=== PATIENT | female | born 1950 | race Caucasian/White ===

== ENCOUNTER 2016-12-04 06:37 | Inpatient (IN) | payer OTHER ==
[~2016-12-04] VITALS: Ht 154.9 cm; Wt 59.3 kg
[2016-12-04] VITALS (9 sets, daily range): BP systolic 101–136; BP diastolic 62–70
[~2016-12-04 06:37] MED LIST: AMLO5TAB4 PO; ASPI325T4 PO; ATOR20TA PO; CAPT100T2 PO; CIPR500T3 PO; DABI150C PO; GUAI-103 PO; HYDR-3240 PO; LISI-167 PO; LISI-170 PO; LISI40TA PO; METO25TA35 PO; METO50TA82 PO; NICO1PAT4 TD; NICO1PAT5 TD; SIMV5TAB5 PO; TRAM50TA2 PO; WARF2.5T PO; WARF5TAB PO
[2016-12-04] MEDS ORDERED: ERGO500017 PO (07:51)
[2016-12-04] MEDS ORDERED: AMLO10TA2 PO (07:51)
[2016-12-04] MEDS ORDERED: SODIUM CHLORIDE 0.9% 1,000ML IVBOLUS ONE (08:00)
[2016-12-04 08:30] LABS: ASPARTATE AMINO TRANSFERASE 16 U/L (15-37); BLOOD UREA NITROGEN 26 mg/dL (7-18)
[2016-12-04] MEDS ORDERED: OMNIPAQUE 350 MG/ML, 100ML BOTTLE ONE (09:15)
[2016-12-04 10:21] LABS: PATH.CAST-FLAG NOT PRESENT; SPERM-FLAG NOT PRESENT; SRC-FLAG NOT PRESENT; XTAL-FLAG NOT PRESENT; YLC-FLAG NOT PRESENT
[2016-12-04] MEDS ORDERED: HYDROmorphone 1 MG/ML, 1ML IVPush PRN (10:30)
[2016-12-04] MEDS ORDERED: ONDANSETRON 2MG/ML, 2ML IVPush ONE (10:30)
[2016-12-04] MEDS ORDERED: HYDROmorphone 1 MG/ML, 1ML ONE (10:39)
[2016-12-04] MEDS ORDERED: METRONIDAZOLE PMX 500MG/100ML 100 ML ONE (10:58)
[2016-12-04] MEDS ORDERED: METRONIDAZOLE PMX 500MG/100ML 100 ML IV ONE (11:00)
[2016-12-04] MEDS ORDERED: SODIUM CHLORIDE 0.9% 1,000 ML IV SCH (13:59)
[2016-12-04] MEDS ORDERED: LABETALOL 5MG/ML, 20ML IVPush PRN (14:00)
[2016-12-04] MEDS ORDERED: ENALAPRILAT 1.25 MG/ML, 2ML IVPush PRN (14:00)
[2016-12-04] MEDS ORDERED: ONDANSETRON 2MG/ML, 2ML IVPush PRN (14:00)
[2016-12-04] MEDS ORDERED: NICOTINE 14MG/24 HR PATCH.TD24 TD ONE (14:30)
[2016-12-04] MEDS: CEFTRIAXONE PMX 1GM/50ML 50 ML IV SCH (15:51)
[2016-12-04] MEDS: HYDROmorphone 2 MG/ML, 1ML IVPush PRN (17:24)
[2016-12-04] MEDS: METRONIDAZOLE PMX 500MG/100ML 100 ML IV SCH (20:11)
[2016-12-05] VITALS (11 sets, daily range): BP systolic 128–175; BP diastolic 67–85
[2016-12-05] MEDS: METOPROLOL TARTRATE 50 MG TABLET PO SCH ×2 (02:02→08:55)
[2016-12-05] MEDS: METRONIDAZOLE PMX 500MG/100ML 100 ML IV SCH ×4 (02:02→20:07)
[2016-12-05 07:07] LABS: ASPARTATE AMINO TRANSFERASE 13 U/L (15-37); BLOOD UREA NITROGEN 15 mg/dL (7-18)
[2016-12-05] MEDS: AMLODIPINE 5 MG TABLET PO SCH (08:56)
[2016-12-05] MEDS ORDERED: LISINOPRIL 20 MG TABLET PO SCH (09:00)
[2016-12-05] MEDS ORDERED: POTASSIUM CHLORIDE 40 MEQ in SODIUM CHLORIDE 0.9% 500 ML IV ONE (10:00)
[2016-12-05] MEDS ORDERED: hydrALAzine 20 MG/ML, 1ML IV PRN (10:30)
[2016-12-05] MEDS: NS + 40MEQ KCL 1,000 ML IV SCH ×2 (11:04→22:21)
[2016-12-05] MEDS: CEFTRIAXONE PMX 1GM/50ML 50 ML IV SCH (14:22)
[2016-12-05] MEDS: ENALAPRILAT 1.25 MG/ML, 2ML IV SCH ×2 (14:22→20:07)
[2016-12-05] MEDS: HYDROmorphone 2 MG/ML, 1ML IVPush PRN (18:01)
[2016-12-06 00:40] VITALS: BP 132/67
[2016-12-06] MEDS: METRONIDAZOLE PMX 500MG/100ML 100 ML IV SCH ×4 (02:54→21:02)
[2016-12-06] MEDS: ENALAPRILAT 1.25 MG/ML, 2ML IV SCH ×4 (02:56→21:02)
[2016-12-06] MEDS: NS + 40MEQ KCL 1,000 ML IV SCH ×2 (05:38→11:40)
[2016-12-06 07:40] LABS: BLOOD UREA NITROGEN 11 mg/dL (7-18)
[2016-12-06 07:55] VITALS: BP 126/74
[2016-12-06] MEDS: AMLODIPINE 5 MG TABLET PO SCH (09:00)
[2016-12-06 13:32] VITALS: BP 129/74
[2016-12-06] MEDS: CEFTRIAXONE PMX 1GM/50ML 50 ML IV SCH (16:50)
[2016-12-06 20:00] VITALS: BP 167/79
[2016-12-06] MEDS: HYDROmorphone 2 MG/ML, 1ML IVPush PRN (21:03)
[2016-12-07 02:25] VITALS: BP 122/68
[2016-12-07] MEDS: METRONIDAZOLE PMX 500MG/100ML 100 ML IV SCH ×3 (03:10→14:26)
[2016-12-07] MEDS: ENALAPRILAT 1.25 MG/ML, 2ML IV SCH ×2 (03:10→08:40)
[2016-12-07 06:05] LABS: BLOOD UREA NITROGEN 13 mg/dL (7-18)
[2016-12-07 08:07] VITALS: BP 110/59
[2016-12-07] MEDS: AMLODIPINE 5 MG TABLET PO SCH (08:40)
[2016-12-07] MEDS: HYDROmorphone 2 MG/ML, 1ML IVPush PRN (08:42)
[2016-12-07] MEDS: CEFTRIAXONE PMX 1GM/50ML 50 ML IV SCH (13:49)
== END 2016-12-07 16:10 | disposition home or self-care (01) | DRG 291 ==
LOC: ED 10:12 → EDIP 10:30 → SUATTDRO 10:43 → 4WST 12:10 → DCLOUNGE 12-07 15:47
PROVIDERS: ADMIT Internal Medicine; ATTEND Internal Medicine
PROC: 30233L1 Transfusion of Nonautologous Fresh Plasma into Peripheral Vein, Percutaneous Approach (ICD-10-PCS; principal; 2016-12-04)
PROC: 30233K1 Transfusion of Nonautologous Frozen Plasma into Peripheral Vein, Percutaneous Approach (ICD-10-PCS; 2016-12-04)
DX: I11.0 Hypertensive heart disease with heart failure (principal); K55.039 Acute (reversible) ischemia of large intestine, extent unspecified; D68.69 Other thrombophilia; K50.90 Crohn's disease, unspecified, without complications; I50.32 Chronic diastolic (congestive) heart failure; D50.0 Iron deficiency anemia secondary to blood loss (chronic); E78.5 Hyperlipidemia, unspecified; E87.6 Hypokalemia; F17.210 Nicotine dependence, cigarettes, uncomplicated; I07.1 Rheumatic tricuspid insufficiency; I25.10 Atherosclerotic heart disease of native coronary artery without angina pectoris; I25.2 Old myocardial infarction; I48.2 Chronic atrial fibrillation; I73.9 Peripheral vascular disease, unspecified; M19.90 Unspecified osteoarthritis, unspecified site; K02.9 Dental caries, unspecified; T45.515A Adverse effect of anticoagulants, initial encounter; Z86.73 Personal history of transient ischemic attack (TIA), and cerebral infarction without residual deficits; Z79.01 Long term (current) use of anticoagulants; Z80.0 Family history of malignant neoplasm of digestive organs; Z80.8 Family history of malignant neoplasm of other organs or systems; Z82.49 Family history of ischemic heart disease and other diseases of the circulatory system; Z95.5 Presence of coronary angioplasty implant and graft; Z88.5 Allergy status to narcotic agent; Z88.1 Allergy status to other antibiotic agents; Z79.82 Long term (current) use of aspirin; Z79.899 Other long term (current) drug therapy; Z71.6 Tobacco abuse counseling; I70.1 Atherosclerosis of renal artery
CPT/HCPCS: 36415; 36430; 74177; 80048; 80053; 81001; 83735; 84100; 85014; 85018; 85025; 85610; 85730; 86850; 86900; 87046; 87324; 89055; 93005; 96374; 96375; J0696; J1170; J2405; J3480; Q9967; J0360; J7030; J7040; P9017